=== PATIENT | male | born 1970 | race Asian ===

== ENCOUNTER 2019-10-23 16:08 | Emergency (ER) | payer OTHER ==
[2019-10-23 16:20] VITALS: BP 123/86; PULSE 73; TEMP 97.7; BMI 25.8
--- NOTE | 2019-10-23 16:48 | PDOC ---
History of Present Illness - General Chief Complaint: Hematuria Stated Complaint: BLOOD IN URINE AND RECTAL BLEED PER PT Time Seen by Provider: 10/23/19 16:45 History Source: Patient Exam Limitations: No Limitations - History of Present Illness Initial Comments: 10/23/19 18:02 Victor Manuel Johnson is a 48yM w PMHx HTN HLD presenting with hematuria and hematochezia. Noted urine was red/orange color last night w associated pyuria. This morning noted 20 drops bright red blood w stool passage. Never had blood in urine/stool before. Currently has suprapubic discomfort. Not on blood thinners. No active bleeding. Denies fever, nausea/vomiting, chest pain. Past History - Past Medical History Allergies/Adverse Reactions: Allergies Allergy/AdvReac Type Severity Reaction Status Date / Time No Known Allergies Allergy Verified 10/23/19 16:11 Home Medications: Ambulatory Orders Metoprolol Succinate [Toprol Xl -] 50 mg PO DAILY 06/22/18 Amoxicillin - [Amoxicillin 500mg Capsule -] 500 mg PO TID 10/23/19 Cholecalciferol (Vitamin D3) [Vitamin D3] 2,000 unit PO DAILY 10/23/19 [place]-3 Fatty Acids [[place]-3] 2,000 mg PO BID 10/23/19 Anemia: No Asthma: No Cancer: No Cardiac Disorders: No CVA: No COPD: No CHF: No Dementia: No Diabetes: No GI Disorders: Yes Disorders: No HTN: Yes Hypercholesterolemia: Yes Liver Disease: No Seizures: No Thyroid Disease: No - Surgical History Abdominal Surgery: No Appendectomy: Yes Cardiac Surgery: No Cholecystectomy: No Lung Surgery: No Neurologic Surgery: No Orthopedic Surgery: No - Immunization History Td Vaccination: No Immunization Up to Date: No - Psycho Social/Smoking Cessation Hx Smoking Status: No Smoking History: Never smoked Have you smoked in the past 12 months: No Number of Cigarettes Smoked Daily: 0 Information on smoking cessation initiated: No Hx Alcohol Use: No Drug/Substance Use Hx: No Substance Use Type: None Hx Substance Use Treatment: No Review of Systems - Review of Systems Constitutional: No: Chills, Fever HEENTM: No: Eye Pain, Nose Pain, Hearing Loss, Throat Pain Respiratory: No: Cough, Shortness of Breath Cardiac (ROS): No: Chest Pain, Lightheadedness, Palpitations ABD/GI: Yes: Rectal Bleeding. No: Abdominal Distended, Constipated, Diarrhea, Nausea, Vomiting : Yes: Burning, Hematuria. No: Dysuria, Frequency Musculoskeletal: No: Joint Swelling, Muscle Pain Integumentary: No: Bruising, Dryness, Erythema Neurological: No: Headache, Seizure, Tingling, Tremors Psychiatric: No: Anxiety, Depression, Stressors Endocrine: No: Excessive Sweating, Flushing, Intolerance to Cold, Intolerance to Heat Hematologic/Lymphatic: No: Anemia, Blood Clots *Physical Exam - Vital Signs Last Vital Signs Temp Pulse Resp BP Pulse Ox 97.7 F 73 16 123/86 100 10/23/19 16:10 10/23/19 16:10 10/23/19 16:10 10/23/19 16:10 10/23/19 16:10 - Physical Exam General Appearance: Yes: Nourished, Appropriately Dressed. No: Apparent Distress HEENT: positive: EOMI, ALDO, Normal Voice, Hearing Grossly Normal. negative: Scleral Icterus (R), Scleral Icterus (L), Nasal Congestion, Rhinorrhea Respiratory/Chest: positive: Lungs Clear, Normal Breath Sounds. negative: Chest Tender, Crackles, Rales, Rhonchi, Stridor, Wheezing Cardiovascular: positive: Regular Rhythm, Regular Rate, S1, S2. negative: Edema , Murmur Gastrointestinal/Abdominal: positive: Normal Bowel Sounds, Flat, Soft, Other ( RLQ appendectomy scar, not tender. No suprapubic pain w palpation). negative: Tender, Organomegaly, Distended, Guarding, Rebound, Tenderness Male Genitalia: positive: normal genitalia. 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 negative: Numbness, Confused, Disoriented ED Treatment Course - LABORATORY CBC & Chemistry Diagram: 10/23/19 17:00 10/23/19 17:00 Medical Decision Making - Medical Decision Making 10/23/19 18:12 Victor Manuel Johnson is a 48yM w PMHx HTN HLD presenting with hematuria and hematochezia. Labs did not show UTI, FOBT negative for blood, normal kidney function, no signs of infection. Genital exam normal, rectal exam showed single hemorrhoid, no active bleeding. DC home w PCP f/u Discharge - Discharge Information Problems reviewed: Yes Clinical Impression/Diagnosis: Hematochezia Hematuria Qualifiers: Hematuria type: unspecified type Qualified Code(s): R31.9 - Hematuria, unspecified Condition: Good Disposition: HOME - Admission No - Follow up/Referral Referrals: Brigido Dill MD [Primary Care Provider] - - Patient Discharge Instructions Patient Printed Discharge Instructions: DI for Rectal Bleeding, DI for Hematuria Additional Instructions: You were seen for blood in your urine and stool. Your labs did not show anything abnormal. Please follow up with your primary care doctor regarding your symptoms. Come back to the ED if you have fever, excessive bleeding, or worsening abdominal pain. - Post Discharge Activity
[2019-10-23 17:37] LABS: BASO % 0.8 % (0-2.0); EOS % 4.3 % (0-4.5); HEMATOCRIT 48.5 % (35.4-49); HEMOGLOBIN 16.4 GM/dl (11.7-16.9); LYMPH % 25.2 % (8-40); MCHC 33.7 g/dl (32.0-35.9); MEAN CELL VOLUME 92.1 fl (80-96); MEAN PLT VOLUME 7.9 fl (7.5-11.1); MONO % 8.9 % (3.8-10.2); NEUT % 60.8 % (42.8-82.8); PLATELET COUNT 247 K/MM3 (134-434); RBC 5.27 M/mm3 (4.00-5.60); RDW 11.6 % (11.9-15.9); WHITE BLOOD COUNT 6.9 K/mm3 (4.0-10.8)
--- NOTE | 2019-10-23 17:37 | PDOC ---
Attending Attestation - Resident Resident Name: Tommy Taylor - ED Attending Attestation I have performed the following: I have examined & evaluated the patient, The case was reviewed & discussed with the resident, I agree w/resident's findings & plan, Exceptions are as noted - HPI HPI: 10/23/19 17:35 48 M with h/o HTN presenting to ED with blood in urine and stool. Pt states that he first noticed blood in his urine last night. He states that it was "orange" colored when he urinated. Pt also states that he was very thirsty at the time. He endorses mild dysuria that has resolved. Denies any flank pain. Denies F/C. This morning, pt had a bowel movement and saw "a few drops of blood " on the stool. Denies abdominal pain. Denies N/V. - Physicial Exam PE: 10/23/19 17:36 "GENERAL: Awake, alert, and fully oriented, in no acute distress. HEAD: No signs of trauma EYES: PERRLA, EOMI, sclera anicteric, conjunctiva clear ENT: Auricles normal inspection, hearing grossly normal, nares patent, oropharynx clear without exudates. Moist mucosa NECK: Nontender, no stepoffs, Normal ROM, supple, no lymphadenopathy, JVD, or masses LUNGS: Breath sounds equal, clear to auscultation bilaterally. No wheezes, and no crackles HEART: Regular rate and rhythm, normal S1 and S2, no murmurs, rubs or gallops ABDOMEN: Soft, nontender, normoactive bowel sounds. No guarding, no rebound. No masses EXTREMITIES: Normal range of motion, no edema. No clubbing or cyanosis. No cords, erythema, or tenderness NEUROLOGICAL: Cranial nerves II through XII intact. 5/5 strength and sensation in all extremities, Normal speech, normal gait, normal cerebellar function SKIN: Warm, Dry, normal turgor, no rashes or lesions noted. RECTAL: brown stool, no hemorrhoids, no melena - Medical Decision Making 10/23/19 17:37 48 M with hematuria and possible blood in stool. Pt with no hemorrhoids or evidence of GI bleed on exam. - Labs, UA - Stool guaiac 10/23/19 17:56 Labs wnl UA negative for blood or infection Guaiac negative Pt reassessed - has not had any additional episodes of hematuria or BRBPR. Pt is well appearing, with normal vitals. Clinically stable for DC at this time. I discussed the physical exam findings, ancillary test results and final diagnoses with the patient. I answered all of the patient's questions. The patient was satisfied with the care received and felt comfortable with the discharge plan and treatment plan. The patient agrees to follow up with the primary care physician within 24-72 hours.
[2019-10-23 17:46] LABS: ALBUMIN 4.1 g/dl (3.4-5.0); BILIRUBIN,TOTAL 0.7 mg/dl (0.2-1); CALCIUM 8.7 mg/dl (8.5-10); CREATININE 0.8 mg/dl (0.55-1.3); POTASSIUM 4.2 mmol/L (3.5-5.1); TOT PROT 7.1 g/dl (6.4-8.2)
== END 2019-10-23 18:06 | disposition home or self-care (01) ==
LOC: FER 16:08
DX: R31.9 Hematuria, unspecified (principal); K92.1 Melena; I10 Essential (primary) hypertension; E78.5 Hyperlipidemia, unspecified
CPT/HCPCS: 36415; 80053; 81003; 82272; 85025; 87086; 99282-25

== ENCOUNTER 2020-07-26 15:11 | Emergency (ER) | payer OTHER ==
[2020-07-26] MEDS ORDERED: ACETAMINOPHEN 500 MG TABLET (FP) PO ONE (15:22)
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
[2020-07-26 15:45] VITALS: BP 131/87; PULSE 88; TEMP 98.3; BMI 25.1
[2020-07-26] MEDS ORDERED: ACETAMINOPHEN 500 MG TABLET (FP) ONE (16:07)
== END 2020-07-26 16:23 | disposition home or self-care (01) ==
LOC: FER 15:11
DX: S60.221A Contusion of right hand, initial encounter (principal)
CPT/HCPCS: 73130-TC-RT-FY; 99283-25